=== PATIENT | male | born 2000 | race Caucasian/White ===

== ENCOUNTER 2025-02-13 06:42 | Observation (INO) | payer OTHER, SELFPAY ==
[2025-02-13] VITALS (25 sets, daily range): BP systolic 91–154; BP diastolic 47–75; PULSE 22–125; RESP 15–93; TEMP 36.2–37.8; O2SAT 92–100; BMI 29.7
--- NOTE | 2025-02-13 | PATH_ITS ---
[facility] Accession Number: [id number] No. of containers..01 Tissue . 01 Material submitted: . appendix - APPENDIX . 01 Diagnosis: APPENDIX, APPENDECTOMY: Marked acute appendicitis with serositis. No evidence of neoplasm. MRV 02/18/2025 1415 Local . 01 Electronically signed: . Timbo Cobb MD, PhD, Pathologist NPI- [id number] . 01 Gross description: . Received in formalin with two identifiers and appendix, is a vermiform appendix, 5.4 cm in length by 1.3 cm in diameter. The serosa is tang and erythematous with grossly dilated vasculature and mesoappendix extending up to 1.3 cm. The margin is inked blue. The lumen averages 0.5 cm in diameter and contains hemorrhagic material. The craft are vang-tang and average 0.4 cm thick with no perforation or lesions identified. Radio Electronics Technician sections to include the margin, entire bisected distal tip, and cross-sections are submitted in A1-A2. ([id number]) /MRV 02/17/2025 1304 Local . 01 Pathologist provided ICD-10: K35.80 . 01 CPT . 193458 Specimen Comment: A courtesy copy of this report has been sent to [facility] Performed at: [address], [place], [place] [id number] MD Chris Morgan MD Phone: [phone]
--- NOTE | 2025-02-13 06:50 | DI.CT.S_ITS ---
PROCEDURE: CT ABDOMEN PELVIS W CON INDICATIONS: abd pain rlq and n/v TECHNIQUE: After the administration of intravenous contrast, axial sections acquired from the lung bases to the pubic symphysis. Coronal and sagittal reformats were performed. For radiation dose reduction, the following was used: automated exposure control, adjustment of mA and/or kV according to patient size. COMPARISON: None. FINDINGS: Image quality: Diagnostic. Lower Chest: Mild bibasilar atelectasis. ABDOMEN: Liver: No solid mass. Gallbladder: No radiopaque gallstones or wall thickening. Biliary ducts: No biliary dilation. Pancreas: No ductal dilation. Spleen: Size is within normal limits. Adrenal Glands: No adrenal nodules. Kidneys and Ureters: No hydronephrosis. No solid mass. No complex renal cystic lesion which requires follow up. Stomach and Bowel: The appendix is abnormal. Appendix is dilated to 1.8 cm in diameter. There is moderate periappendiceal stranding. There is an appendicoliths. No evidence for perforation or abscess. No evidence for small bowel obstruction or associated inflammatory changes. Mild circumferential wall thickening of the colon with submucosal fatty hypertrophy compatible with sequela of chronic inflammatory process such as inflammatory bowel disease. No findings to suggest acute colitis. Peritoneum: No abnormal intraperitoneal fluid. No free air. Ventral Wall: There is a fat-containing umbilical hernia without acute inflammation. Abdominal Nodes: No retroperitoneal or mesenteric adenopathy by size criteria. Vessels: Aorta and inferior vena cava are normal in size. PELVIS: Pelvic Organs: Unremarkable. Bladder: No bladder wall thickening, accounting for underdistention. Pelvic Nodes: No enlarged lymph nodes. Miscellaneous: No inguinal hernias are seen. Bones: No aggressive osseous abnormality. Visualized osseous structures appear intact without acute fracture or focal destructive lesion. No acute compression fractures of the imaged spine. IMPRESSION: Acute appendicitis. There is an appendicolith. No evidence for perforation or abscess formation. Other chronic/non-acute findings as above. Dictated by: Aureliano Glass M.D. on 02/13/2025 at 7:49 Approved by: Aureliano Glass M.D. on 02/13/2025 at 7:53
--- NOTE | 2025-02-13 06:51 | ED.ABDPAIN ---
HPI - Abdominal Pain General Chief Complaint: Abdominal Pain Stated Complaint: ab pain Time Seen by Provider: 02/13/25 07:25 History of Present Illness HPI narrative: 24-year-old gentleman history of asthma presents with multiple bouts of nonbilious nonbloody nausea vomiting along with right lower quadrant pain that started last evening after eating [place] food. Of note he was battling flu-like symptoms in the past few days cough and congestion last week. He did have a normal bowel movement earlier today. He denies fever, chills, bodyaches, sore throat, sick contacts, rash, urinary complaints. Other than what is stated 14 point review of system is negative. Related Data Allergies Allergy/AdvReac Type Severity Reaction Status Date / Time No Known Drug Allergies Allergy Verified 02/13/25 10:23 Review of Systems Review of Systems ROS Unobtainable: All systems reviewed & are unremarkable except as noted in HPI and below Patient History Social History household members: family Smoking Status: Never smoker Exam Narrative Exam Narrative: GENERAL: [24] year old patient appears stated age. Well-developed patient, in mild distress. HEAD: Atraumatic. Normocephalic. EYES: Pupils equal round and reactive. Extraocular motions intact. No scleral icterus. No injection or drainage. ENT: Nose without bleeding, purulent drainage. Throat without erythema, tonsillar hypertrophy or exudate. Airway patent. NECK: Trachea midline. Non tender CARDIOVASCULAR: Regular rate and rhythm without murmurs, gallops, or rubs. RESPIRATORY: Clear to auscultation. Breath sounds equal bilaterally. No wheezes, rales, or rhonchi. GASTROINTESTINAL: Abdomen soft, RLQ ttp no r/r/g, nondistended. EXTREMITIES: No edema or joint tenderness. BACK: Nontender without deformity or crepitance. No flank tenderness. NEURO: AOx3. SKIN: No rash or erythema of visible areas Initial Vital Signs Initial Vital Signs: Vital Signs Pulse Rate 83 02/13/25 06:43 Pulse Oximetry 100 02/13/25 06:43 Course Orders Ordered: ED Orders 02/13/25 06:50 CT abdomen pelvis w con Stat 02/13/25 06:55 Complete Blood Count AUTO DIFF Stat Comprehensive Metabolic Panel Stat Lipase Stat 02/13/25 08:37 Blood Culture Stat Albuterol (Albuterol 2.5 Mg/3 Ml Neb (Adult)) 2.5 mg INH NOW PRN PRN Reason: Coughing, Wheezing, Dyspnea Hydromorphone HCl (Hydromorphone 1 Mg Inj) 0 mg IV Q5MIN PRN PRN Reason: Pain, Moderate (4-6) Piperacillin Sod/Tazobactam (Sod 3.375 gm/ Sodium Chloride) 100 mls @ 25 mls/hr IV Q6H JULIA Last Infusion: 02/13/25 10:09 Dose: 25 mls/hr Documented By: Admin: 02/13/25 09:18 Dose: 25 mls/hr Documented By: CTS Lactated Ringer's (Lactated Ringers) 1,000 mls @ 100 mls/hr IV CONT JULIA Last Admin: 02/13/25 11:33 Dose: 100 mls/hr Documented By: Infusion: 02/13/25 10:09 Dose: Infused Documented By: Admin: 02/13/25 09:18 Dose: 100 mls/hr Documented By: JOON Lactated Ringer's (Lactated Ringers) 1,000 mls @ 42 mls/hr IV CONT JULIA Ondansetron HCl (Ondansetron 4 Mg/2 Ml Inj) 4 mg IV NOW PRN PRN Reason: Nausea And Vomiting Last Admin: 02/13/25 09:19 Dose: 4 mg Documented By: JOON Ondansetron HCl (Ondansetron 4 Mg Odt) 4 mg PO NOW PRN PRN Reason: Nausea And Vomiting Oxycodone HCl (Oxycodone Ir 5 Mg Tablet) 5 mg PO PACUNOW PRN PRN Reason: Mild or moderate pain Discontinued Medications Hydromorphone HCl (Hydromorphone 1 Mg Inj) 1 mg IV NOW ONE Stop: 02/13/25 09:04 Last Admin: 02/13/25 09:18 Dose: 1 mg Documented By: CTS Lactated Ringer's (Lactated Ringers) 1,000 mls @ 1,000 mls/hr IV BOLUS ONE Stop: 02/13/25 07:48 Last Infusion: 02/13/25 09:00 Dose: Infused Documented By: Admin: 02/13/25 07:00 Dose: 1,000 mls/hr Documented By: AM Acetaminophen (Ofirmev) 1,000 mg in 100 mls @ 400 mls/hr IV NOW ONE Stop: 02/13/25 11:14 Last Infusion: 02/13/25 11:18 Dose: Infused Documented By: Admin: 02/13/25 11:00 Dose: 400 mls/hr Documented By: RAMAKRISHNA Metoclopramide HCl (Metoclopramide 10 Mg/2 Ml Inj) 10 mg IV NOW ONE Stop: 02/13/25 06:54 Last Admin: 02/13/25 07:00 Dose: 10 mg Documented By: AM Vital Signs Vital signs: Vital Signs - 8 hr 02/13/25 06:43 02/13/25 06:44 02/13/25 07:00 Pulse Rate 83 86 91 H Respiratory Rate 17 Blood Pressure 138/69 Pulse Oximetry 100 99 99 Oxygen Delivery Method Room Air 02/13/25 07:00 02/13/25 07:28 02/13/25 07:28 Pulse Rate 98 H Respiratory Rate Blood Pressure 147/74 H 146/69 H Pulse Oximetry 100 Oxygen Delivery Method 02/13/25 07:30 02/13/25 07:30 02/13/25 08:00 Pulse Rate 98 H 90 Respiratory Rate Blood Pressure 148/67 H Pulse Oximetry 99 98 Oxygen Delivery Method 02/13/25 08:00 02/13/25 08:30 02/13/25 08:30 Pulse Rate 113 H Respiratory Rate Blood Pressure 148/67 H 154/75 H Pulse Oximetry 99 Oxygen Delivery Method MDM - Abdominal Pain Lab Data 02/13/25 06:55 02/13/25 06:55 Labs: Lab Results 02/13/25 02/13/25 Range/Units 06:55 08:36 WBC 18.1 H (4.5-11.0) X10^3/uL RBC 4.75 (4.5-5.9) X10^6/uL Hgb 14.3 (13.5-17.5) g/dL Hct 41.6 (41-53) % MCV 87.4 (80-100) fL MCH 30.1 (26-34) PG MCHC 34.4 (30-36) % RDW 13.6 (11.6-14.8) % Plt Count 183 (150-400) X10^3/uL Neut % (Auto) 89.3 H (50-75) % Lymph % (Auto) 4.2 L (25-40) % [place] % (Auto) 6.2 (3-14) % Eos % (Auto) 0.0 L (2-4) % Baso % (Auto) 0.3 (0-2) % Neut # (Auto) 90160 H (5649-4571) /uL Lymph # (Auto) 800 L (3518-0705) /uL [place] # (Auto) 1100 H (0-900) /uL Eos # (Auto) 0 (0-450) /uL Baso # (Auto) 0 (0-100) /uL Sodium 139 (137-145) mmol/L Potassium 4.8 (3.4-5.1) mmol/L Chloride 102 (98-107) mmol/L Carbon Dioxide 26 (22-32) mmol/L BUN 12 (9-20) mg/dL Creatinine 0.80 (0.66-1.25) mg/dL Estimated GFR > 60 (>60) mL/min BUN/Creatinine Ratio 15.0 (6-22) Glucose 134 H (70-99) mg/dL Calcium 9.4 (8.4-10.2) mg/dL Total Bilirubin 1.0 (0.2-1.3) mg/dL AST 46 (17-59) IU/L ALT 57 H (<50) IU/L Alkaline Phosphatase 72 (38-126) U/L Total Protein 8.6 H (6.3-8.2) g/dL Albumin 5.0 (3.5-5.0) g/dL Globulin 3.6 (1.7-4.1) g/dL Albumin/Globulin Ratio 1.4 (1.0-2.8) Lipase 62 (23-300) U/L Urine Color Yellow Urine Appearance Clear Urine pH 7.0 (4.5-8.0) Ur Specific Gatzke <=1.005 (1.000-1.035) Urine Protein Negative (Negative) Urine Glucose (UA) Negative (Negative) g/dL Urine Ketones Negative (NEGATIVE) Urine Occult Blood Trace-intact (Negative) Urine Nitrate Negative (Negative) Urine Bilirubin Negative (NEGATIVE) Urine Urobilinogen 0.2 (0.2) E.U./dL Ur Leukocyte Esterase Negative (NEGATIVE) Urine RBC 0-1/hpf (0-5/HPF) Urine WBC None seen (0-5/HPF) Ur Squamous Epith Cells 1-5 /hpf (0-5/HPF) Urine Bacteria None seen (None) Ur Culture Indicated? Cult not indicated Vol Urine Centrifuged 10ml (spun) MDM Narrative Medical decision making narrative: Pt s/o to at shift change pending final disposition Discharge Plan Departure Patient Disposition: Admitted to Surgery Clinical Impression: Acute appendicitis Qualifiers: Acute appendicitis type: with localized peritonitis Appendicitis gangrene presence: without gangrene Appendicitis perforation presence: without perforation Appendicitis abscess presence: without abscess Qualified Code(s): K35.30 - Acute appendicitis with localized peritonitis, without perforation or gangrene Admit Date/Time: 02/13/25 09:10 Admit Provider: Rigo Miller
[2025-02-13] MEDS: METOCLOPRAMIDE 10 MG/2 ML INJ IV (07:00)
[2025-02-13] MEDS: LACTATED RINGERS 1,000 ML 1000 ML IV (07:00)
[2025-02-13 07:06] LABS: Add Manual Diff / Slide Review NO; Hematocrit 41.6 % (41-53); Hemoglobin 14.3 g/dL (13.5-17.5); Lymphocytes Absolute Auto 800 /uL (1100-4500); Mean Corpuscular HGB Conc 34.4 % (30-36); Mean Corpuscular Hemoglobin 30.1 PG (26-34); Mean Corpuscular Volume 87.4 fL (80-100); Platelet Count 183 X10^3/uL (150-400)
[2025-02-13 07:22] LABS: Alanine Aminotransferase 57 IU/L (<50); Albumin 5.0 g/dL (3.5-5.0); Albumin Globulin Ratio 1.4 (1.0-2.8); Alkaline Phosphatase 72 U/L (38-126); Blood Urea Nitrogen 12 mg/dL (9-20); Calcium 9.4 mg/dL (8.4-10.2); Carbon Dioxide 26 mmol/L (22-32); Chloride 102 mmol/L (98-107); Estimated Glomerular Filt Rate > 60 mL/min (>60); Globulin 3.6 g/dL (1.7-4.1); Glucose 134 mg/dL (70-99); Lipase 62 U/L (23-300); Potassium 4.8 mmol/L (3.4-5.1); Sodium 139 mmol/L (137-145); Total Protein 8.6 g/dL (6.3-8.2)
[2025-02-13 07:33] LABS: HEMOLYSIS 75 (0-50)
--- NOTE | 2025-02-13 08:44 | PM.CN.IH.1 ---
History of Present Illness Consult details Date Patient Seen: 02/13/25 Time Patient Seen: 08:45 Chief complaint: ab pain Narrative: The patient is a 24-year-old gentleman who presents with about 14 hour history of right lower quadrant abdominal pain. The patient states that the pain is constant and increases with movement and better when he lies still. Patient has had multiple episodes of vomiting. He is presently anorexic. Meds Home Medications and Allergies Allergies Allergy/AdvReac Type Severity Reaction Status Date / Time No Known Drug Allergies Allergy Verified 02/13/25 06:44 Review of Systems Review of Systems ROS: Yes All systems reviewed with the patient and are negative except as otherwise documented Exam Vital Signs (past 8 hours): - 02/13/25 06:44 Pulse Rate 86 Respiratory Rate 17 Blood Pressure 138/69 Pulse Oximetry 99 Oxygen Delivery Method Room Air Oxygen Delivery Method Room Air Narrative Exam Narrative: Patient is an adult male who is appears to be in some mild distress and looks somewhat flushed Neck is supple Chest is clear to auscultation bilaterally Cardiac reveals a regular rate and rhythm Abdomen is firm with well-localized right lower quadrant tenderness with positive percussion tenderness and a positive Rovsing sign. Bowel sounds are hypoactive Extremities reveal a full range of motion Objective Imaging CT scan - abdomen: Radiologist's impression: PROCEDURE: CT ABDOMEN PELVIS W CON INDICATIONS: abd pain rlq and n/v TECHNIQUE: After the administration of intravenous contrast, axial sections acquired from the lung bases to the pubic symphysis. Coronal and sagittal reformats were performed. For radiation dose reduction, the following was used: automated exposure control, adjustment of mA and/or kV according to patient size. COMPARISON: None. FINDINGS: Image quality: Diagnostic. Lower Chest: Mild bibasilar atelectasis. ABDOMEN: Liver: No solid mass. Gallbladder: No radiopaque gallstones or wall thickening. Biliary ducts: No biliary dilation. Pancreas: No ductal dilation. Spleen: Size is within normal limits. Adrenal Glands: No adrenal nodules. Kidneys and Ureters: No hydronephrosis. No solid mass. No complex renal cystic lesion which requires follow up. Stomach and Bowel: The appendix is abnormal. Appendix is dilated to 1.8 cm in diameter. There is moderate periappendiceal stranding. There is an appendicoliths. No evidence for perforation or abscess. No evidence for small bowel obstruction or associated inflammatory changes. Mild circumferential wall thickening of the colon with submucosal fatty hypertrophy compatible with sequela of chronic inflammatory process such as inflammatory bowel disease. No findings to suggest acute colitis. Peritoneum: No abnormal intraperitoneal fluid. No free air. Ventral Wall: There is a fat-containing umbilical hernia without acute inflammation. Abdominal Nodes: No retroperitoneal or mesenteric adenopathy by size criteria. Vessels: Aorta and inferior vena cava are normal in size. PELVIS: Pelvic Organs: Unremarkable. Bladder: No bladder wall thickening, accounting for underdistention. Pelvic Nodes: No enlarged lymph nodes. Miscellaneous: No inguinal hernias are seen. Bones: No aggressive osseous abnormality. Visualized osseous structures appear intact without acute fracture or focal destructive lesion. No acute compression fractures of the imaged spine. IMPRESSION: Acute appendicitis. There is an appendicolith. No evidence for perforation or abscess formation. Other chronic/non-acute findings as above. Dictated by: Aureliano Glass M.D. on 02/13/2025 at 7:49 Approved by: Aureliano Glass M.D. on 02/13/2025 at 7:53 Labs 02/13/25 06:55 02/13/25 06:55 Labs: Laboratory Results - last 24 hr 02/13/25 06:55 WBC 18.1 H RBC 4.75 Hgb 14.3 Hct 41.6 MCV 87.4 MCH 30.1 MCHC 34.4 RDW 13.6 Plt Count 183 Neut % (Auto) 89.3 H Lymph % (Auto) 4.2 L [place] % (Auto) 6.2 Eos % (Auto) 0.0 L Baso % (Auto) 0.3 Neut # (Auto) 50853 H Lymph # (Auto) 800 L [place] # (Auto) 1100 H Eos # (Auto) 0 Baso # (Auto) 0 Sodium 139 Potassium 4.8 Chloride 102 Carbon Dioxide 26 BUN 12 Creatinine 0.80 Estimated GFR > 60 BUN/Creatinine Ratio 15.0 Glucose 134 H Calcium 9.4 Total Bilirubin 1.0 AST 46 ALT 57 H Alkaline Phosphatase 72 Total Protein 8.6 H Albumin 5.0 Globulin 3.6 Albumin/Globulin Ratio 1.4 Lipase 62 PFSH Tobacco & Substance Use Smoking Status: Never smoker Assessment & Plan Time-Based Coding :: [TOTAL MINUTES] spent with patient and on the chart (including review of chart, obtaining history, exam, reviewing outside data, placing orders, documenting exam and treatment plan, and counseling patient) on [DATE]. PROFEE Charge Codes Inpatient or Observation consultation: [id number]
[2025-02-13] MEDS: LACTATED RINGERS 1,000 ML 100 ML IV ×2 (09:18→11:33)
[2025-02-13] MEDS: HYDROMORPHONE 1 MG INJ IV (09:18)
[2025-02-13] MEDS: PIPERACILLIN/TAZO 3.375 GM in SODIUM CHLORIDE 0.9% 100 ML IV (09:18)
[2025-02-13] MEDS: ONDANSETRON 4 MG/2 ML INJ IV (09:19)
--- NOTE | 2025-02-13 09:34 | PC.NURSE ---
Rec'd report from LONI Simeon. 0700 pt to imaging. Arrived back with mother in room. appears uncomfortable. Lying flat. Surgeon paged for acute appy. Pt undressed and placed into gown. Consent witnessed and in paper chart. Urine obtained. belongings with mom. BC x 2 obtained. ABX and pain meds given per MAR. OR team called. Appears more comfortable post pain meds.
--- NOTE | 2025-02-13 10:14 | PM.PREOP ---
Pre-operative Note Interval Note History & Physical reviewed/Exam performed by Physician: Yes Changes to H&P: No
[2025-02-13 10:18] LABS: Appearance Urine UA CLEAR; Bilirubin Urine UA NEGATIVE (NEGATIVE); Color Urine UA YELLOW; Glucose Urine UA NEGATIVE (Negative); Ketones Urine UA NEGATIVE (NEGATIVE); Leukocyte Esterase Urine UA NEGATIVE (NEGATIVE); Nitrite Urine UA NEGATIVE (Negative); Occult Blood Urine UA TRACE-INTACT (Negative); Protein Urine UA NEGATIVE (Negative); Specific Gravity Urine UA <=1.005 (1.000-1.035); Urobilinogen Urine UA 0.2 E.U./dL (0.2); pH Urine UA 7.0 (4.5-8.0)
[2025-02-13] MEDS: LACTATED RINGERS 1,000 ML 42 ML IV (10:30)
[2025-02-13 10:33] LABS: Culture Indicated Urine Cult Not Indicated
--- NOTE | 2025-02-13 10:55 | SUR.OPER ---
Supine on padded OR bed, head on pillow, arms padded with gel pad and tucked, legs uncrossed, tape over blanket over lower legs.
[2025-02-13] MEDS: ACETAMINOPHEN IV 1,000 MG/100 ML VIAL 400 MG IV (11:00)
--- NOTE | 2025-02-13 11:28 | SUR.OPER ---
Supine on padded OR bed, head on pillow, arms padded and tucked at sides, legs uncrossed, tape over blanket over lower legs, safety strap across chest and legs later
--- NOTE | 2025-02-13 12:34 | PM.OP.1 ---
Operative Date/Time/Diagnoses Date of procedure: 02/13/25 Time of procedure: 10:50 Pre-op diagnosis: Acute appendicitis Post-op diagnosis: same Procedure & Clinicians Procedure: Laparoscopic appendectomy Same procedure(s) as scheduled: Yes Indications: he patient is a 24-year-old gentleman who presents with about 14 hour history of right lower quadrant abdominal pain. The patient states that the pain is constant and increases with movement and better when he lies still. Patient has had multiple episodes of vomiting. He is presently anorexic. The patient has CT scan of the abdomen and pelvis which is consistent with acute appendicitis. Surgeon: ED* *Temp Click Yes if Unassisted: Yes Anesthesia Type: General Operative Notes Findings: The patient had acutely inflamed retrocecal appendix. Closure Type: primary Specimen(s): other Applied: none Estimated Blood Loss (mL): 10 Procedure in detail: After appropriate patient identification, the patient was placed on the procedure table in supine position. Upon achieving adequate general anesthesia, the abdomen was prepped with ChloraPrep and draped in a sterile manner. After completion of the time-out, a supraumbilical midline incision was fashioned using a 15 blade knife. The incision was deepened through dermis and subcutaneous tissue to the linea alba using Bovie electrocautery. The linea Alba was opened under direct vision using Bovie electrocautery. The peritoneum was entered bluntly. A [id number] suture of 0 Vicryl was placed. A Cuellar catheter was then placed through the incision into the abdomen and secured with the previously placed 0 Vicryl suture. The abdomen was insufflated with carbon dioxide to 15 mmHg pressure. Two 5 mm trocars were placed in the abdomen under direct vision, 1 in the left lower quadrant and 1 suprapubically. The appendix was found in a retrocecal position was grasped with a grasping clamp. The mesoappendix was dissected off of the appendix using a [place] dissector. The mesoappendix was then divided using a Endo-ANTOINE with a vascular load. The appendix was then amputated at its base using an Endo-ANTOINE with a tissue load. The appendix was then placed in a sac inside the abdomen and brought out through the umbilicus. The who saw trocar was then passed through the incision the abdomen is re-insufflated. The operative site was inspected and hemostasis was assured. All trocars were removed. The previously placed 0 Vicryl suture was then tied securing the linea Alba the supraumbilical incision. All skin incisions were reapproximated using 4-0 on dyed Monocryl in interrupted subcuticular fashion. Steri-Strips and a sterile dressing were placed and the procedure was terminated. The patient was transferred to the recovery room in good condition having sustained proximally 10 cc blood loss Complications: none Post-operative Condition: stable Disposition: PACU
[2025-02-13] MEDS: DEXTROSE 5%-0.45% NS 1,000 ML 100 ML IV (13:48)
[2025-02-13] MEDS: IBUPROFEN 400 MG TABLET PO ×2 (17:25→21:21)
[2025-02-13] MEDS: ACETAMINOPHEN 325 MG TABLET 650 MG PO ×2 (17:26→23:47)
[2025-02-14 00:05] VITALS: BP 113/55; PULSE 72; RESP 16; TEMP 36.2; O2SAT 95
[2025-02-14] MEDS: ACETAMINOPHEN 325 MG TABLET 650 MG PO (05:27)
[2025-02-14] MEDS: IBUPROFEN 400 MG TABLET PO ×2 (05:27→09:13)
[2025-02-14] MEDS: SODIUM CHLORIDE 0.9% FLUSH 10 ML IV (09:14)
--- NOTE | 2025-02-14 10:57 | P.PN_ITS ---
Subjective Subjective Date Patient Seen: 02/14/25 Time Patient Seen: 10:57 Interval history: Patient is 1 day postop, status post laparoscopic appendectomy. He is doing well and has no complaints. He is tolerating a clear liquid diet. His pain is being well managed Exam Vital Signs (past 8 hours): Oxygen Delivery Method Room Air Oxygen Flow Rate 0 Narrative Exam Narrative: Lungs are clear to auscultation bilaterally Cardiac reveals a regular rate and rhythm Abdomen is soft, nontender, with active bowel sounds. Dressings are dry and intact Objective Imaging CT scan - abdomen: Radiologist's impression: PROCEDURE: CT ABDOMEN PELVIS W CON INDICATIONS: abd pain rlq and n/v TECHNIQUE: After the administration of intravenous contrast, axial sections acquired from the lung bases to the pubic symphysis. Coronal and sagittal reformats were performed. For radiation dose reduction, the following was used: automated exposure control, adjustment of mA and/or kV according to patient size. COMPARISON: None. FINDINGS: Image quality: Diagnostic. Lower Chest: Mild bibasilar atelectasis. ABDOMEN: Liver: No solid mass. Gallbladder: No radiopaque gallstones or wall thickening. Biliary ducts: No biliary dilation. Pancreas: No ductal dilation. Spleen: Size is within normal limits. Adrenal Glands: No adrenal nodules. Kidneys and Ureters: No hydronephrosis. No solid mass. No complex renal cystic lesion which requires follow up. Stomach and Bowel: The appendix is abnormal. Appendix is dilated to 1.8 cm in diameter. There is moderate periappendiceal stranding. There is an appendicoliths. No evidence for perforation or abscess. No evidence for small bowel obstruction or associated inflammatory changes. Mild circumferential wall thickening of the colon with submucosal fatty hypertrophy compatible with sequela of chronic inflammatory process such as inflammatory bowel disease. No findings to suggest acute colitis. Peritoneum: No abnormal intraperitoneal fluid. No free air. Ventral Wall: There is a fat-containing umbilical hernia without acute inflammation. Abdominal Nodes: No retroperitoneal or mesenteric adenopathy by size criteria. Vessels: Aorta and inferior vena cava are normal in size. PELVIS: Pelvic Organs: Unremarkable. Bladder: No bladder wall thickening, accounting for underdistention. Pelvic Nodes: No enlarged lymph nodes. Miscellaneous: No inguinal hernias are seen. Bones: No aggressive osseous abnormality. Visualized osseous structures appear intact without acute fracture or focal destructive lesion. No acute compression fractures of the imaged spine. IMPRESSION: Acute appendicitis. There is an appendicolith. No evidence for perforation or abscess formation. Other chronic/non-acute findings as above. Dictated by: Aureliano Glass M.D. on 02/13/2025 at 7:49 Approved by: Aureliano Glass M.D. on 02/13/2025 at 7:53 Labs 02/13/25 06:55 02/13/25 06:55 [facility] Social History household members: family Smoking Status: Never smoker Assessment & Plan Assessment and plan (1) Acute appendicitis: Qualifiers: Acute appendicitis type: with localized peritonitis Appendicitis abscess presence: without abscess Appendicitis gangrene presence: without gangrene Appendicitis perforation presence: without perforation Qualified Code(s): K35.30 - Acute appendicitis with localized peritonitis, without perforation or gangrene Status: Acute Plan Plan is to discharge patient home today. Patient lives in [facility] I made a recommendation to follow up with the surgeon within the next 7-10 days. Time-Based Coding :: [TOTAL MINUTES] spent with patient and on the chart (including review of chart, obtaining history, exam, reviewing outside data, placing orders, documenting exam and treatment plan, and counseling patient) on [DATE]. PROFEE Etymology Teacher Document charge(s): Yes Charge Codes Inpatient/observation prolonged services: [id number]
[2025-02-14 11:58] VITALS: BP 123/67; PULSE 59; RESP 15; TEMP 36.8; O2SAT 95
--- NOTE | 2025-02-14 12:57 | PC.NURSE ---
Patient d/c teaching done at bedside with pt and mother present. Copy of Oxy prescription placed in chart. Hand delivered paper RX to mother per patients req. Paperwork for d/c reviewed. Pt is aware he needs to f/u with surgery in his home town 1 week from d/c date. Pt declined assistance with help getting dressed. Mother has called family member for ride from hosp. Pt's VSS, A&Ox4 and looking forward to departure.
--- NOTE | 2025-02-14 14:50 | CM.DANOTE ---
B DCP Assessment note pt is a 24yo M POD1 lap appy. PCP none listed payer Olivarez Likez [employer] reviewed EMR. per surgeon note, cleared for dc home today. per chart, pt lives in [facility]. supportive mother at bedside. pt left prior to being seen by this [employer] AGENT home with mom support. CM team will continue to follow as needed in case any DCP needs arise DORIS Joya Discharge Planning/Care Management CM Discharge Assessment Start: 02/13/25 09:22 Freq: Status: Discharge Protocol: Document 02/14/25 14:48 SL (Rec: 02/14/25 14:50 SL Desktop) Discharge Planning Assessment Assigned Discharge DORIS [employer] Director DPOA/Assigned brad Minor Designee Name Contact Information [phone] Advance Directives? No History Provided By Patient Prior Living House Arrangements Household Members family Independent with ADL Yes 's Is patient alert and Yes oriented? Discharge Plan Home Review Status In Process Please Provide Date 02/14/25 Initial DC Assessment Was Performed Next Review Type Continued Stay Review
== END 2025-02-14 14:00 | disposition home or self-care (01) ==
LOC: ED 07:25 → AC 09:11
PROVIDERS: Family Medicine; Admitting Provider Surgery Trauma Surgery; Emergency Provider Family Medicine; Referring Provider Family Medicine; Visit Provider Surgery Trauma Surgery
PROC: 0DTJ4ZZ Resection of Appendix, Percutaneous Endoscopic Approach (ICD-10-PCS; CPT 44970; principal; 2025-02-13 10:30)
DX: R10.31 Right lower quadrant pain (principal)
CPT/HCPCS: 44970; 36415; 74177; 80053; 81001; 83690; 85025; 87040; 96361; 96374; 96375; 99283; 99284; G0378; J0131; J0330; J1100; J1171; J1885; J2250; J2405; J2543; J2704; J2765; J3010; Q9967